=== PATIENT | female | born 1955 | race Two or more races ===

== ENCOUNTER 2019-08-24 05:14 | Day surgery (SDC) | payer MEDICARE, MEDICAID ==
[2019-08-20 08:40] LABS: BASOPHILS % (AUTO) 1.9 % (0.0-2.0); EOSINOPHILS % (AUTO) 3.9 % (0.0-3.0); HEMATOCRIT 39.5 % (37.0-47.0); HEMOGLOBIN 13.2 G/DL (12.0-16.0); LYMPHOCYTES % (AUTO) 36.2 % (20.0-45.0); MEAN CORPUSCULAR VOLUME 94 FL (80-99); NEUTROPHILS % (AUTO) 51.1 % (45.0-75.0); PLATELET COUNT 237 K/UL (150-450); RED BLOOD COUNT 4.19 M/UL (4.20-5.40); RED CELL DISTRIBUTION WIDTH 13.1 % (11.6-14.8); WHITE BLOOD COUNT 5.1 K/UL (4.8-10.8)
[2019-08-20 08:53] LABS: INR 0.9 (0.9-1.1)
[2019-08-20 08:59] LABS: ANION GAP 7 mmol/L (5-15); BLOOD UREA NITROGEN 14 mg/dL (7-18); CALCIUM 9.3 MG/DL (8.5-10.1); CARBON DIOXIDE 30 MMOL/L (21-32); CHLORIDE 109 MMOL/L (98-107); CREATININE 0.7 MG/DL (0.55-1.30); POTASSIUM 4.5 MMOL/L (3.5-5.1); SODIUM 146 MMOL/L (136-145)
--- NOTE | 2019-08-20 15:00 | Pre-op HX & Phy Repo 2 SIG ---
DATE OF ADMISSION: 08/24/2019 PRESURGICAL INTERNAL MEDICINE HISTORY AND PHYSICAL DATE OF EVALUATION: DATE OF PLANNED SURGERY: Surgery is scheduled for 08/24/[address] Rom Potts. REASON FOR EVALUATION: The patient is a 64-year-old female, who has a nuclear sclerotic cataract, left eye. Please see full Ophthalmology History and Physical by Dr. Rom Potts. The patient's was evaluated in the outpatient procedure department of [facility]. PAST MEDICAL HISTORY/REVIEW OF SYSTEMS: Remarkable for knee, degenerative joint disease. Denies history of hypertension. No stroke. No diabetes. The patient has a history of colon cancer in 2003. No history of heart attack. Denies history of thyroid problem. No respiratory problem. Denies anemia. No GI problem. PAST SURGICAL HISTORY: Cervical spine disk, colon cancer colon resection, bilateral bunion removed, and right ankle fracture with bone graft. FAMILY HISTORY: Mother has hypertension, father with arthritis. ALLERGIES: Not known. MEDICATIONS: Present medications include oxybutynin 5 mg, hydrocodone 25 mg twice a day, and prednisone. Course of treatment for acute elbow bursitis. Diclofenac ointment and diclofenac tablet 75 mg. SOCIAL HISTORY: The patient smoked for many years until 2003. Alcohol, occasionally. Marijuana, occasionally. PHYSICAL EXAMINATION: GENERAL: Alert, well-developed and well-nourished female in her 60s, in no acute distress. VITAL SIGNS: Blood pressure 127/77, temperature 97.9, pulse 56 and regular, and respirations . O2 saturation 98% on room air. SKIN: Warm, clear. No rashes. LYMPHATICS: No lymph node enlargement. HEENT: Head, normocephalic and atraumatic. Ears, clear. No discharge. Nose, clear. No discharge. Eyes, full description per Dr. Rom Potts. Mouth, clear and moist. Partial dentures. NECK: Supple. No jugular distention. Carotids artery +2. Trachea midline. No palpable mass. CHEST: No deformity or asymmetry. LUNGS: Clear to auscultation and percussion. No rales or rhonchi. HEART: Sinus rhythm. No ectopy. No murmur. No S3 or S4. Bradycardia 56 per minute. ABDOMEN: Soft. No palpable mass. No rebound. EXTREMITIES: Degenerative joint disease of the knee. No edema. No varices. GENITOURINARY: No CVA tenderness. No dysuria. NEUROLOGIC: No tremor. No nystagmus. LABORATORY DATA: Electrocardiogram, sinus bradycardia 56 per minute, otherwise normal ECG. Sodium 146, potassium 4.5, chloride 109. GFR more than 60. CBC - white blood cells 5.1, hemoglobin 13.2. IMPRESSION: 1. Nuclear sclerotic cataract, left eye. 2. Degenerative joint disease of knee. 3. History of colon cancer. 4. Sinus bradycardia. PLAN: Cataract extraction of left eye with intraocular lens implant per Dr. Rom Potts. CONCLUSION: The patient has a history of colon cancer, degenerative joint disease of knee and dysuria. The patient's vital signs are stable. ECG, sinus bradycardia, nonsignificant. The patient to be NPO after midnight Saturday. The patient's condition is optimized for surgery. Thank you very much, Dr. Potts, for privilege to participate in presurgical care of this interesting patient. Marlin Garcia M.D. DR: VIOLETTA JOB#: [id number] CC:
--- NOTE | 2019-08-20 17:07 | Pre-Procedure Note/Attestation ---
Pre-Procedure Note/Attestation Complete Prior to Procedure Planned Procedure: left Procedure Narrative: Cataract extraction with IOL implant left eye Indications for Procedure Pre-Operative Diagnosis: Nuclear sclerotic cataract left eye Attestation I attest that I discussed the nature of the procedure; its benefits; risks and complications; and alternatives (and the risks and benefits of such alternatives ), prior to the procedure, with the patient (or the patient's legal international account representative). I attest that, if there was a reasonable possibility of needing a blood transfusion, the patient (or the patient's legal international account representative) was given the [facility] standardized written summary, pursuant to the Jose R Bess Blood Safety Act ([place] Health and Safety Code # 1645, as amended). I attest that I re-evaluated the patient just prior to the surgery and that there has been no change in the patient's H&P, except as documented below: Rom Potts MD Aug 20, 2019 17:07
--- NOTE | 2019-08-21 09:56 | Opthalmology H&P ---
Ophthalmology H&P H&P Chief Complaint: decreased vision in left eye HPI Vision Affects Ability to: read, manage personal affairs Past Ocular History: retinal problems - ERM OS HPI Narrative Blurry vision Exam Visual Acuity: OD 20/25 OS 20/60 Tension: OD 14 OS 11 Eye Exam: normal OU: external exam, palpebral fissure-width, marginal reflex distance, levator function, corneas, anterior chambers, fundus exam; findings: lens - NS cataracts OU Assessment/Plan Treatment Plan: cataract extraction w/ lens implant Goals of Treatment: improvement of vision, enhance quality of life Attestation Attestation The risks and benefits of the surgery as well as alternative procedures were explained to the patient in detail. Rom Potts MD Aug 21, 2019 09:56
[2019-08-24] VITALS (10 sets, daily range): BP systolic 114–130; BP diastolic 71–77
[~2019-08-24] VITALS: Ht 160 cm; Wt 117.9 kg
[~2019-08-24 05:14] MED LIST: DICLOFENAC SODI75 MG ORAL; OXYBUTYNIN CHLOR5 M1 ORAL; OXYCODONE HCL15 M1 ORAL; PREDNISONE20 MG ORAL; diclofenac gel TOPIC
[2019-08-24] MEDS: Tropicamide 1% Opth 15ml Soln LEFT EYE SCH ×3 (05:44→06:06)
[2019-08-24] MEDS: Phenylephrine 10% Opth Soln 5ml LEFT EYE SCH ×3 (05:45→06:05)
[2019-08-24] MEDS: Cyclopentolate 1% Opth Sol 2ml LEFT EYE SCH ×3 (05:45→06:06)
[2019-08-24] MEDS: Ciprofloxacin Opth Soln 2.5ml LEFT EYE SCH ×3 (05:45→06:05)
[2019-08-24] MEDS ORDERED: Propofol 200mg/20ml IV ONE (06:59)
[2019-08-24] MEDS ORDERED: Midazolam 2mg/2ml Inj ONE (06:59)
[2019-08-24] MEDS ORDERED: fentaNYL 100 mcg/2 mL IV ONE (06:59)
[2019-08-24] MEDS ORDERED: NS Irrig 1000ml ONE (07:00)
[2019-08-24] MEDS ORDERED: Akten 3.5% 1ml Btl LEFT EYE ONE (07:00)
[2019-08-24] MEDS ORDERED: Proparacaine 0.5% Opth Soln 15ml LEFT EYE ONE (07:00)
[2019-08-24] MEDS ORDERED: Sterile Water Irrig 1000ml IRRIG ONE (07:00)
[2019-08-24] MEDS ORDERED: LR 1000ml ONE (07:00)
[2019-08-24] MEDS ORDERED: Tetracaine 0.5% Opth 4ml Soln LEFT EYE ONE (07:00)
[2019-08-24] MEDS ORDERED: Carbachol 0.01% Op Soln 1.5ml vial ONE (07:05)
[2019-08-24] MEDS ORDERED: EPINEPHrine 1mg/1ml Amp ONE (07:05)
[2019-08-24] MEDS ORDERED: Lidocaine 2% MPF 5ml Vial INJ ONE (07:05)
[2019-08-24] MEDS ORDERED: BSS 15ml BTL ONE (07:06)
[2019-08-24] MEDS ORDERED: BSS 500ml btl ONE (07:06)
[2019-08-24] MEDS ORDERED: Povidone-Iodine 5% opth solution ONE (07:07)
[2019-08-24] MEDS ORDERED: Bupivacaine 0.75% 30ml vial INJ ONE (07:07)
[2019-08-24] MEDS ORDERED: Sodium Hyaluronate 10 mg/ml 0.85ml ONE (07:08)
[2019-08-24] MEDS ORDERED: acetaZOLAMIDE 500mg Inj ONE (07:15)
[2019-08-24] MEDS ORDERED: LR 1000ml 1,000 ML IVLG SCH (07:55)
[2019-08-24] MEDS ORDERED: fentaNYL 100 mcg/2 mL IV PRN (08:00)
--- NOTE | 2019-08-24 08:00 | Anethesia Preoperative Eval ---
Anesthesia Pre-op PMH/ROS General Date of Evaluation: Aug 24, 2019 Time of Evaluation: 07:08 Anesthesiologist: Sunni ASA Score: ASA 3 Mallampati Score Class I : Soft palate, uvula, fauces, pillars visible Class II: Soft palate, uvula, fauces visible Class III: Soft palate, base of uvula visible Class IV: Only hard plate visible Mallampati Classification: Class III Surgeon: Katlyn Diagnosis: L eye cataract Surgical Procedure: Cataract extraction Anesthesia History: none Family History: no anesthesia problems Allergies: Coded Allergies: LIVER EXTRACT (Verified Allergy, Intermediate, vomiting, 08/24/19) Medications: see eMAR Patient NPO?: Yes Past Medical History Cardiovascular: Denies: HTN, CAD, MS, valve dz, arrhythmia, other Pulmonary: Reports: LESLIE; Denies: asthma, COPD, other Gastrointestinal/Genitourinary: Reports: GERD Neurologic/Psychiatric: Reports: other - chronic pain; Denies: dementia, CVA, depression/anxiety, TIA Endocrine: Denies: DM, hypothyroidism, steroids, other HEENT: Reports: cataract (L), cataract (R); Denies: glaucoma, [place]ORY[place] (L), MEKORY[place] (R), other Hematology/Immune: Denies: anemia, DVT, bleeding disorder, other Musculoskeletal/Integumentary: Reports: OA; Denies: RA, DJD, DDD, edema, other Other: obesity PMH Narrative: as above PSxH Narrative: See chart Anesthesia Pre-op Phys. Exam Physician Exam Last Vital Signs Date Time Temp Pulse Resp B/P (MAP) Pulse Ox O2 Delivery O2 Flow Rate FiO2 08/24/19 05:57 Room Air 08/24/19 05:49 98.2 74 18 130/76 96 Constitutional: NAD Neurologic: CN 2-12 intact Cardiovascular: RRR, no M/R/G Respiratory: CTA Gastrointestinal: other - obesity Airway Exam Mallampati Score: Class III MO: limited Neck: stiff ROM: limited Teeth: missing Dentures: no upper, no lower Anesthesia Pre-op A/P Labs see chart Studies Pre-op Studies: EKG - NSR Risk Assessment & Plan Assessment: ASA 3 Plan: MAC Status Change Before Surgery: Cash Bucio MD Aug 24, 2019 08:00
--- NOTE | 2019-08-24 08:30 | Immediate Post-Op Evaluation ---
Immediate Post-Op Evalulation Immediate Post-Op Evalulation Procedure: L eye cataractextraction with IoL Date of Evaluation: Aug 24, 2019 Time of Evaluation: 08:26 IV Fluids: 300 Blood Products: none Estimated Blood Loss: none Urinary Output: none Blood Pressure Systolic: 134 Blood Pressure Diastolic: 76 Pulse Rate: 72 Respiratory Rate: 22 O2 Sat by Pulse Oximetry: 99 Temperature (Fahrenheit): 97.6 Pain Score (1-10): 1 Nausea: No Vomiting: No Complications none Patient Status: awake, patent, none Hydration Status: adequate Cash Moeller MD Aug 24, 2019 08:30
--- NOTE | 2019-08-24 09:14 | 48 Hour Post Anesthesia Eval ---
Post Anesthesia Evaluation Procedure: L eye cataractextraction with IoL Date of Evaluation: Aug 24, 2019 Time of Evaluation: 09:13 Blood Pressure Systolic: 128 0: 76 Pulse Rate: 68 Respiratory Rate: 20 Temperature (Fahrenheit): 97.6 O2 Sat by Pulse Oximetry: 98 Airway: patent Nausea: No Vomiting: No Pain Intensity: 2 Hydration Status: adequate Cardiopulmonary Status: stable Mental Status/LOC: patient returned to baseline Follow-up Care/Observations: n/a Post-Anesthesia Complications: none Follow-up care needed: ready to discharge Cash Moeller MD Aug 24, 2019 09:14
--- NOTE | 2019-08-26 07:47 | Brief Operative Note ---
Immediate Post Operative Note Operative Note Chief Complaint: Blurry vision Pre-op Diagnosis: Nuclear sclerotic cataract left eye Procedure: Cataract extraction with IOL implant left eye Post-op Diagnosis: Pseudophakia OS Surgeon: Rom Potts MD Anesthesiologist: Cash Moeller MD Anesthesia: MAC Specimen: none Complications: none Condition: stable Fluids: LR Estimated Blood Loss: none Drains: none Implant(s) used?: Yes - IOL-OS Rom Potts MD Aug 26, 2019 07:47
--- NOTE | 2019-08-26 07:52 | Operative Note - PDOC ---
Operative Note Operative Note Date of Operation/Procedure: Aug 24, 2019 Chief Complaint: Blurry vision Pre-op Diagnosis: Nuclear sclerotic cataract left eye Procedure: Cataract extraction with IOL implant left eye Post-op Diagnosis: Pseudophakia OS Surgeon: Rom Potts MD Anesthesiologist: Cash Moeller MD Anesthesia: MAC Specimen: none Complications: none Condition: stable Fluids: LR Estimated Blood Loss: none Drains: none Implant(s) used?: Yes - IOL-OS Indications for Procedure Nuclear sclerotic cataract left eye Description of Procedure This patient has been complaining visually significant cataract in the left eye with the best corrected visual acuity of 20/60 under moderate glare conditions worse. The patient complains of difficulties with glare in performing activities of daily living and wants to manage personal affairs with comfort and accuracy and see well enough to move with safety at home and outdoors. The risks, benefits and alternatives of the procedure were discussed with the patient in the office prior to scheduling surgery. All questions from the patient were answered after the surgical procedure was explained in detail. The risks of the procedure as explained to the patient include, but are not limited to, pain, infection, bleeding, loss of vision, retinal detachment, need for further surgery, loss of lens nucleus, double vision, etc. Alternative procedures were discussed which include, to do nothing or seek a second opinion. Informed consent for this procedure was obtained from the patient. The patient was referred to a primary care physician for a cardiopulmonary clearance prior to surgery, after proper evaluation was done patient was properly scheduled for outpatient surgery. The patient was brought to the operating room where the anesthesiologist established I.V. lines and cardiac monitoring leads. Mild intravenous sedation was administered. The patient was then prepared with a 5% solution of povidone -iodine to the conjunctival fornix and lashes, and a 5% solution of povidone- iodine to the lids and periorbital skin. The patient was then draped in the usual sterile fashion. A lid speculum was then placed in the operative eye. A keratome blade was then used to create a biplanar incision into the anterior chamber. Viscoelastics was then instilled into the anterior chamber. A capsulorrhexis was then fashioned with an utrata forceps A G 27 cannula was used to hydrodissect and hydro delineate the lens nucleus. Paracentesis incision was made at 3 o'clock with sharp blade. The phacoemulsification unit, after being properly adjusted and tested, was then used to emulsify the nucleus. Residual cortical material was aspirated with the irrigation and aspiration unit. Healon was then instilled into the anterior chamber. The corneal wound was then enlarged to the size of the optic with the cinthya keratome blade. The intraocular lens was then inspected for right power and size and thought to be satisfactory. Then the lens was gently placed in the capsular bag. Positioning within the capsular bag was confirmed by direct visualization. Optic centration was accomplished with a Sinskey hook. Viscoelastics was removed from the anterior chamber using the irrigation and aspiration unit. The corneal wound was then tested for leaks and none were found. The lid speculum were then removed. Sponge and needle counts were correct. An eye patch and shield were placed over the operative eye. The patient was taken to the recovery room in stable condition. There were no complications. The patient tolerated the procedure well. The patient was then transferred to the ambulatory surgery unit in stable and satisfactory condition , was given detailed written instructions and asked to follow up in the office the next day. Rom Potts MD Aug 26, 2019 07:52
== END 2019-08-24 09:30 | disposition home or self-care (01) ==
LOC: SUR 05:14
DX: H25.12 Age-related nuclear cataract, left eye (principal); M17.10 Unilateral primary osteoarthritis, unspecified knee; R00.1 Bradycardia, unspecified; Z85.038 Personal history of other malignant neoplasm of large intestine; R30.0 Dysuria; Z79.899 Other long term (current) drug therapy; G47.33 Obstructive sleep apnea (adult) (pediatric); K21.9 Gastro-esophageal reflux disease without esophagitis; M19.90 Unspecified osteoarthritis, unspecified site; E66.9 Obesity, unspecified; Z68.42 Body mass index [BMI] 45.0-49.9, adult
CPT/HCPCS: 36415; 66984; 80048; 85025; 85610; 85730; J0171; J1120; J2250; J2704; J3010; J3370; J7120; V2632; 94003; 94150